=== PATIENT | female | born 1955 | race Caucasian/White ===

== ENCOUNTER → 2023-07-20 | Outpatient (CLI) | payer MEDICARE ==
--- NOTE | 2023-07-22 07:49 | MR ---
EXAMINATION TYPE: MR shoulder RT wo con DATE OF EXAM: 07/20/2023 COMPARISON: None. HISTORY: Right shoulder pain with difficulty raising arm overhead for one year. TECHNIQUE: Multiplanar, multisequence imaging of the right shoulder is performed without contrast. FINDINGS: Rotator Cuff: There is susceptibility artifact from prior rotator cuff surgical repair. There is no f ull-thickness retracted recurrent tear. Increased signal in the supraspinatus and infraspinatus tendo ns remain present. There is some partial tearing of the infraspinatus tendon near articular surface s agittal and 6 for reference. Subscapularis tendon is intact. Rotator cuff muscle bulk is preserved. Acromioclavicular Joint: No significant spurring or narrowing. Distal acromion morphology unremarkabl e. Glenohumeral Joint: No significant effusion or spurring. Labrum: Increased signal superior labrum suggesting degenerative tear. Biceps Tendon: The long head of biceps is in normal location within bicipital groove. Intracapsular p ortion not well seen to the labral anchor. Bone marrow signal: No focal abnormal marrow signal is appreciated. Other: No additional significant abnormality is appreciated. IMPRESSION: 1. Evidence of prior rotator cuff surgical repair. No recurrent full-thickness retracted tear. There is evidence of tendinosis of the supraspinatus and infraspinatus tendons with some partial tearing of the distal infraspinatus tendon.
== END | disposition home or self-care (01) ==
LOC: RADMRIMAIN 11:12
PROVIDERS: ATTEND Orthopaedic Surgery
DX: M75.111 Incomplete rotator cuff tear or rupture of right shoulder, not specified as traumatic (principal); M67.813 Other specified disorders of tendon, right shoulder; M25.511 Pain in right shoulder

== ENCOUNTER 2023-10-30 10:16 | Day surgery (SDC) | payer MEDICARE ==
--- NOTE | 2023-10-29 17:19 | HP ---
HISTORY AND PHYSICAL DATE OF SURGERY: 10/30/2023 Isha Sky is a 68-year-old patient, seen with progressive right shoulder pain. We discussed options regarding treatment. She elected to proceed with right shoulder arthroscopy. Consent was obtained. PAST MEDICAL HISTORY: Hypertension, hyperlipidemia, [id number] diabetes. PAST SURGICAL HISTORY: Right total knee arthroplasty, left knee medial unicompartmental arthroplasty, right shoulder arthroscopy. DAILY MEDICATIONS: 1. Losartan. 2. Simvastatin. 3. Metformin. ALLERGIES: Darvocet, penicillin, Vicodin. SOCIAL HISTORY: She denies tobacco use. PHYSICAL EVALUATION OF THE RIGHT SHOULDER: Flexion is 120 degrees. Abduction is 90 degrees. External rotation is 40 degrees with pain and weakness. Tenderness along the anterolateral acromion and rotator cuff insertion. Impingement is positive at 90 degrees. Cross-body adduction sign is positive. Drop-arm sign is positive. Distal neurovascular exam is intact. IMAGING STUDIES: Right shoulder radiographs revealed metallic anchors within the humeral head. MRI of right shoulder revealed a partial rotator cuff tendon tear. IMPRESSION: 1. Right shoulder impingement with partial rotator cuff tear. 2. Hypertension. 3. Hyperlipidemia. 4. [id number] diabetes. PLAN: Right shoulder arthroscopy with subacromial decompression, arthroscopic rotator cuff repair and debridement. MMODL / IJN: [id number] /
[~2023-10-30 10:16] MED LIST: HYDROmorphone 0.5 MG/0.5 ML SYRINGE IVP PRN; LACTATED RINGERS 1,000 ML IV SCH; LIDOCAINE 1% (10MG/ML) FOR IV START INTRADERMA PRN; ONDANSETRON 4 MG/2 ML VIAL IVP ONE; droPERidol 5 MG/2 ML VIAL IVP ONE
[2023-10-30 11:04] VITALS: TEMP 98.4
[2023-10-30 11:07] LABS: Glucose,Whole Blood 100 mg/dL (70-110)
[2023-10-30] MEDS ORDERED: LACTATED RINGERS 1,000 ML IV ONE ×2 (11:09→13:27)
[2023-10-30] MEDS ORDERED: ONDANSETRON 4 MG/2 ML VIAL IVP ONE (11:25)
[2023-10-30] MEDS ORDERED: DEXAMETHASONE SOD PHOSPHATE 4 MG/ML 1 ML VIAL IVP ONE (11:26)
[2023-10-30] MEDS ORDERED: MIDAZOLAM 2 MG/2 ML VIAL IVP ONE (11:38)
[2023-10-30 12:00] VITALS: RESP 16
[2023-10-30] MEDS ORDERED: DEXAMETHASONE SOD PHOSPHATE 4 MG/ML 1 ML VIAL ONE (12:27)
[2023-10-30] MEDS ORDERED: ROCURONIUM 10 MG/ML (5 ML VIAL) IV ONE (12:27)
[2023-10-30] MEDS ORDERED: PROPOFOL 10 MG/ML 20 ML VIAL IV ONE (12:27)
[2023-10-30] MEDS ORDERED: PHENYLEPHRINE-0.9% NACL SYG 1,000 MCG/10 ML SYRINGE ONE (12:27)
[2023-10-30] MEDS ORDERED: KETOROLAC 15 MG/ML 1 ML VIAL ONE (12:27)
[2023-10-30] MEDS ORDERED: GLYCOPYRROLATE 0.2 MG/ML 2 ML VIAL ONE (12:27)
[2023-10-30] MEDS ORDERED: LIDOCAINE 1% INJ 10MG/ML (20 ML MDV) ONE (12:27)
[2023-10-30] MEDS ORDERED: NEOSTIGMINE 1 MG/ML 10 ML VIAL ONE (12:27)
[2023-10-30] MEDS ORDERED: SUCCINYLCHOLINE CHLORIDE 200 MG/10 ML VIAL IV ONE (12:27)
[2023-10-30] MEDS ORDERED: fentaNYL (PF) 50 MCG/ML 2 ML AMP ONE (12:27)
[2023-10-30] MEDS ORDERED: ROPIVACAINE 5 MG/ML 30 ML VIAL ONE (12:27)
--- NOTE | 2023-10-30 12:49 | P.ANPRN ---
Procedure Note - Anesthesia - Nerve Block Performed Right Interscalene Single Time Out Performed: Yes Date of Procedure: 10/30/23 Procedure Start Time: 11:38 Procedure Stop Time: 11:53 Location of Patient: PreOp Indication: Acute Post-Operative Pain Sedation Type: Sedate with meaningful contact maintained Preparation: Sterile Prep Position: Supine Needle Types: Pajunk Needle Gauge: 21 Ultrasound used to visualize needle placement: Yes Ultrasound used to observe medication spread: Yes Blood Aspirated: No Pain Paresthesia on Injection Noted: No Resistance on Injection: Normal Image Stored and Saved: Yes Events: Uneventful and Well Tolerated (Ropivacaine 0.5% 20 cc plus dexamethasone 4 mg)
--- NOTE | 2023-10-30 14:06 | P.OP ---
Date of Procedure: 10/30/23 Preoperative Diagnosis: Right shoulder impingement Postoperative Diagnosis: 1. Right shoulder rotator cuff tear 2. Right shoulder impingement 3. Right shoulder partial long head biceps tendon tear 4. Right shoulder labral tear Procedure(s) Performed: 1. Right shoulder arthroscopic rotator cuff repair 2. Right shoulder arthroscopic subacromial decompression 3. Right shoulder arthroscopic biceps tenotomy 4. Right shoulder arthroscopic debridement labral tear Anesthesia: GETA, regional (Interscalene block) Surgeon: Moises Gonzalez Branch Director #1: Tito Oliveira Estimated Blood Loss (ml): 8 Pathology: none sent Condition: stable Disposition: PACU Indications for Procedure: 68-year-old patient seen with progressive right shoulder pain. After having treatment options discussed, she elected to proceed with arthroscopy. Operative Findings: See description of procedure Description of Procedure: Patient underwent an interscalene block by department of anesthesia. The patient was then taken to the operative suite. The patient underwent a general anesthetic by the department of anesthesia. The patient was placed into a lateral position and secured. There was appropriate padding of the bony prominence. Right shoulder was then prepped and draped in normal sterile orthopedic fashion. We placed the extremity in 10 pounds of longitudinal traction. A posterior incision was now made for a posterior working portal site. The trocar and cannula were inserted into the glenohumeral joint. Arthroscopy was initiated. Spinal needle was now inserted anteriorly, to ascertain the anterior working portal site. An incision was now made in that area, a trocar was inserted followed by a probe. There was superficial tearing of the posterior labrum with a radial type flap tear. 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 There was some partial tearing of the long head biceps tendon. I performed arthroscopic biceps tenotomy. I debrided out the superficial posterior labral tear getting down to stable labral tissue. The residual labrum was probed and was found to be stable. At this point instruments were removed from the glenohumeral joint. Utilizing the posterior working portal site, the trocar and cannula were inserted into the subacromial space. Arthroscopy initiated. I made an incision 2 fingerbreadths lateral to the acromion. I introduced my trocar followed by my [employer] ablator. I now began ablating thick subacromial bursal tissue, which exposed the undersurface of the anterior acromion. There was diminished subacromial space. There was a very prominent anterior acromion. A motorized bur was introduced and a subacromial decompression was performed. I also excised some osteophytes off the inferior aspect of the distal clavicle. The AC joint was visualized and noted to be moderately arthritic, I did not think enough to warrant a Francisco procedure. I turned my attention to the rotator cuff tendon. There was a previous stitch noted along with an intrasubstance rotator cuff tendon tear. I remove that stitch. I debrided the margins getting down to stab le tendon tissue. The tear measured approximately 2 cm in length and was freely mobile. I now with the assistance of Killian HANSON past 3 converging sutures and repaired the tendon in a [id number] fashion. Residual suture limbs were clipped. The repair was probed and was found to be stable. We explored the tendon 1 more time there were no other perforations or full-thickness tears present. Instruments now removed from the portal sites. All portal sites were approximated with nylon suture. Sterile dressings were applied followed by a shoulder sling. Tito HANSON assisted in this complex case. The patient was awakened, transferred to a bed, and taken to recovery in stable condition.
[2023-10-30] MEDS ORDERED: HYDROmorphone 0.5 MG/0.5 ML SYRINGE IVP ONE (14:21)
[2023-10-30 15:45] VITALS: BP 102/57; PULSE 68
[2023-10-30 16:10] LABS: Glucose,Whole Blood 109 mg/dL (70-110)
== END 2023-10-30 16:20 | disposition home or self-care (01) ==
LOC: OR 10:16
PROVIDERS: ATTEND Orthopaedic Surgery
DX: S46.011A Strain of muscle(s) and tendon(s) of the rotator cuff of right shoulder, initial encounter (principal); S43.491A Other sprain of right shoulder joint, initial encounter; M75.41 Impingement syndrome of right shoulder; M25.811 Other specified joint disorders, right shoulder; Z79.84 Long term (current) use of oral hypoglycemic drugs; Z79.899 Other long term (current) drug therapy; Z88.0 Allergy status to penicillin; Z88.5 Allergy status to narcotic agent; Z88.8 Allergy status to other drugs, medicaments and biological substances; X58.XXXA Exposure to other specified factors, initial encounter
CPT/HCPCS: 64415; 29826; 29824; 29827; 29828; C1713; J2250; J0330; J1100; J2710; J0690; J2405; J2001; J3010; J2795; J1885; J2704; J1170; J2371